=== PATIENT | female | born 1975 | race Caucasian/White ===

== ENCOUNTER 2019-10-07 22:24 | Emergency (ER) | payer MEDICAID ==
[~2019-10-07] VITALS: Ht 165.1 cm; Wt 63.5 kg
[2019-10-07] MEDS ORDERED: LEXAPRO20 MG PO (23:20)
[2019-10-07] MEDS ORDERED: FERRO-TIME325 MG PO (23:20)
[2019-10-07] MEDS ORDERED: HYDROXYZINE HCL25 M2 PO (23:21)
[2019-10-07] MEDS ORDERED: DORYX MPC120 MG PO (23:22)
[2019-10-07] MEDS ORDERED: DOXYCYCLINE 10100 M2 PO (23:22)
[2019-10-07] MEDS ORDERED: VYVANSE30 MG PO (23:22)
[2019-10-08] MEDS ORDERED: BACTRIM DS TAB1 EACH PO (00:02)
[2019-10-08] MEDS ORDERED: PREDNISONE 20 M20 M1 PO (00:02)
[2019-10-08] MEDS ORDERED: KEFLEX500 M1 PO (00:02)
[2019-10-08 00:10] VITALS: BP 120/72
== END 2019-10-08 00:11 | disposition home or self-care (01) ==
LOC: M.ERS 22:24
DX: L30.9 Dermatitis, unspecified (principal); F17.210 Nicotine dependence, cigarettes, uncomplicated

== ENCOUNTER 2019-10-31 19:35 | Emergency (ER) | payer MEDICAID ==
[~2019-10-31] VITALS: Ht 165.1 cm; Wt 61.2 kg
[~2019-10-31 19:35] MED LIST: BACTRIM DS TAB1 EACH PO; DORYX MPC120 MG PO; DOXYCYCLINE 10100 M2 PO; FERRO-TIME325 MG PO; HYDROXYZINE HCL25 M2 PO; KEFLEX500 M1 PO; LEXAPRO20 MG PO; PREDNISONE 20 M20 M1 PO; VYVANSE30 MG PO
[2019-10-31] MEDS ORDERED: MUPIROCIN22 GM TOP (20:24)
[2019-10-31] MEDS ORDERED: DIFLUCAN200 MG PO (20:24)
[2019-10-31] MEDS ORDERED: BACTRIM DS TAB1 EACH PO (20:24)
[2019-10-31 20:34] VITALS: BP 119/69
== END 2019-10-31 20:35 | disposition home or self-care (01) ==
LOC: M.ERS 19:35
DX: R21 Rash and other nonspecific skin eruption (principal)